=== PATIENT | female | born 1970 | race Caucasian/White ===

== ENCOUNTER → 2018-01-29 | Outpatient (CLI) | payer OTHER ==
--- NOTE | 2018-01-30 13:09 | MM ---
Reason for exam: clinical finding. Last mammogram was performed 2 years and 11 months ago. History: Patient is nulliparous. Family history of breast cancer in 2 maternal aunts and breast cancer in maternal cousin. U/S Discnt Right Core Biopsy of both breasts, February 14, 2013. Benign stereotactic core biopsy of the left breast, November 18, 2001. Core biopsy of the left breast. Took hormonal contraceptives for 18 years. Physical Findings: Nurse did not find any significant physical abnormalities on exam. MG 3D Diag Mammo W/Cad BRYSON Bilateral CC and MLO view(s) were taken. Prior study comparison: February 25, 2015, bilateral MG screening mammo w CAD. February 23, 2014, bilateral MG screening mammo w CAD. The breast tissue is heterogeneously dense. This may lower the sensitivity of mammography. Finding #1: There is stable architectural distortion in the upper quadrant of the right breast consistent with known excisional biopsies. Finding #2: There are typically benign round calcifications in both breasts. Previous mammotome biopsy in the left breast. There is no discrete abnormality. These results were verbally communicated with the patient and result sheet given to the patient on 01/29/18. ASSESSMENT: Benign, BI-RAD 2 RECOMMENDATION: Routine screening mammogram of both breasts in 1 year. Manage on a clinical basis with regard to right pain.
== END | disposition home or self-care (01) ==
LOC: RADMAMWWP 12:43
PROVIDERS: ATTEND Family Medicine
DX: N64.4 Mastodynia (principal)
CPT/HCPCS: 77066; G0279; 77062

== ENCOUNTER → 2020-06-22 | Outpatient (CLI) | payer OTHER ==
--- NOTE | 2020-06-23 08:35 | MM ---
Reason for exam: screening (asymptomatic). Last mammogram was performed 2 years and 5 months ago. History: Patient is nulliparous. Family history of breast cancer in 2 maternal aunts and breast cancer in maternal cousin. U/S Discnt Right Core Biopsy of both breasts, February 14, 2013. Benign stereotactic core biopsy of the left breast, November 18, 2001. Core biopsy of the left breast. Took hormonal contraceptives for 18 years. Physical Findings: A clinical breast exam by your physician is recommended on an annual basis and results should be correlated with mammographic findings. MG Screening Mammo w CAD Bilateral CC and MLO view(s) were taken. Prior study comparison: January 29, 2018, bilateral MG 3d diag mammo w/cad BRYSON. February 25, 2015, bilateral MG screening mammo w CAD. The breast tissue is heterogeneously dense. This may lower the sensitivity of mammography. Stable benign calcifications. There is no discrete abnormality. No significant changes when compared with prior studies. ASSESSMENT: Benign, BI-RAD 2 RECOMMENDATION: Routine screening mammogram of both breasts in 1 year.
== END | disposition home or self-care (01) ==
LOC: RADMAMWWP 09:27
PROVIDERS: ATTEND Family Medicine
DX: Z12.31 Encounter for screening mammogram for malignant neoplasm of breast (principal)
CPT/HCPCS: 77067

== ENCOUNTER → 2022-01-27 | Outpatient (CLI) | payer OTHER ==
--- NOTE | 2022-01-28 05:51 | MR ---
EXAMINATION TYPE: MR cspine/lspine wo con DATE OF EXAM: 01/27/2022 COMPARISON: Lumbar spine 02/25/2021 HISTORY: Neck and lower back pain, headaches, RUE/RLE radiculopathy. Multiplanar multiecho imaging of the cervical spine and lumbar spine without contrast. Cervical spine. Cervical vertebra have fairly Normal alignment. There is posterior disc bulging and slight elevation of the posterior longitudinal ligament at L4-5 and C5-6. There is developmentally adequate spinal can al and no spinal stenosis. Spinal canal measures 9 mm at C5-6 which is the narrowest point. Cervical spinal cord shows fairly normal signal pattern. There is slight increased signal on the left side of the cervical cord at the C5 level that could be artifact. There is no cervical paraspinal mass. No co mpression fracture. There is C5-6 disc space narrowing. IMPRESSION: Small posterior disc herniations at C4-5 and C5-6. No spinal stenosis. No definite cervical spinal co rd lesion. Lumbar spine. The lumbar vertebrae have normal alignment. There is L5-S1 disc space narrowing and posterior disc he rniation in the midline. There is hypertrophic facet arthropathy and ligamentum flavum thickening at the L4-5 level with resultant moderate spinal stenosis. No lumbar compression fracture. No lumbar par aspinal mass. Lumbar nerve roots appear fairly normal. IMPRESSION: There is some moderate spinal stenosis at L4-5 due to facet arthropathy and ligament thickening which is not significantly different than old exam. No compression fracture. Degenerative disc narrowing and disc bulging at L5-S1 without significant impingement on the spinal canal. No change compared to old exam
== END | disposition home or self-care (01) ==
LOC: RADMRIMAIN 20:47
PROVIDERS: ATTEND Nurse Practitioner Family
DX: M47.896 Other spondylosis, lumbar region (principal); M51.37 Other intervertebral disc degeneration, lumbosacral region; M54.2 Cervicalgia
CPT/HCPCS: 72141; 72148

== ENCOUNTER → 2022-03-23 | Outpatient (CLI) | payer OTHER ==
[2022-03-23 10:59] VITALS: BP 141/89; PULSE 72; RESP 18; TEMP 97.9
--- NOTE | 2022-03-23 13:42 | P.PAINPG ---
PQRS Measure Charge Sheet Comment: HISTORY OF PRESENT ILLNESS: 51 yr old female as a referral from [facility] presents today w severe and chronic LBP pain secondary to L5-S1 posterior disc herniations, spinal stenosis, DDD and facet arthropathy for evaluation. Pt states her pain level is currently at 6/10 in intensity, constant, localized in the lower aspect of her lumbar spine w radiation of pain towards BL glutes and posterior R thigh. It is constant, sharp, stabbing sore x 18 mo s/p fall downstairs in the basement. Pain is provoked by standing/walking for periods of 20 min or more, or climbing stairs. Pain is palliated w PT from Sep to January 2022, chiropractic treatments twice weekly but stopped per her PT instructions, heat, ice, medications (Neurontin, [place] prn), topicals, lay supine w LEs elevated, repositioning and rest. PMH: OA PSH: Gastric Sleeve Surgery, Uterine Ablation. SH: Current tobacco use, 10-14 ETOH drinks/ weekly, No illicit drug use. Works in retail as a stock person. FH: Noncontributory All: See list Meds: See list REVIEW OF ORGAN SYSTEMS: CONSTITUTIONAL: No fevers or chills. No recent weight loss. NEUROLOGICAL: + numbness and tingling along the distal extremities. No seizure disorders or headaches. MUSCULOSKELETAL: + pain PSYCHIATRIC: Denies current depression or suicidal thoughts. Physical Examinations : Constitutional : Cooperative , not in acute distress . Neurologic : Cranial nerve II to XII intact. No focal neurological deficits. Psychiatric : alert & oriented x 3. Matching mood & appropriate affect. Judgment & insight intact. Musculoskeletal : Cervical Spine Motor strength in the deltoid and biceps: Normal right side. Normal Left side Motor strength biceps and the wrist extensors: Normal right side . Normal left side Motor strength in the triceps muscle: Normal right side. Normal left side Deep tendon reflexes: Normal at the biceps. Normal at Brachioradialis. Normal at triceps Vertebral body tenderness to deep palpation over Cervical facet loading test: positive bilaterally Spurling test: positive bilaterally Neck distraction test: positive bilaterally Janeth sign: positive bilaterally Lumbar spine Motor strength lower extremities ,thigh and legs 5/5 Right side , 5/5 Left side Deep tendon reflexes : Normal Knee Jerk. Normal Ankle Jerk Vertebral body tenderness over L4 Lumbar facet Loading Test: positive Right / positive Left Range of motion of the lumbar spine Flexion 30 degrees, extension 10 degrees Straight Leg Raise test: Left/ Right positive at <30 degrees Bharat test: positive right / positive left. Severe tenderness over the Sacroiliac joint on the Right / Left sides Gaenslen test: positive bilaterally Seated flexion test: positive bilaterally. Sacral spine : Severe tenderness over the Sacroiliac joint: right side / left side Range of motion: Flexion of the lumbar spine <60 degrees Range of motion: Extension of the lumbar spine <20 degrees Gaenslen's Test positive Obey's Test positive Bharat test: positive right side / left side Thigh Thrust Test Sacral Thrust Test Imaging: MRI without contrast of the cervical and lumbar spine from 01/27/22 reviewed Assessment/ Plan : Lumbar posterior disc herniations, Lumbar spondylolisthesis Recommendation of L4-L5 LESI. May need a series of injections, up to 3 within a 6 mo period, for optimal pain relief. Risks, benefits of procedure discussed and patient verbalized understanding. Denies aspirin or anti- coagulant use or medical history of diabetes. Protocol for discontinuation/ continuation of medications ciara procedure discussed. All questions answered. I have spent greater than 30 minutes on patient care today. Dr Rodriguez was available by phone for the evaluation of this patient. The time was used to review the medical records including relevant urine studies and Prescription history (MAPs), review of the available imaging, evaluation and examination of the patient, coordination of care with the medical staff and if applicable referring physicians, as well as creation of the medical record Controlled Substance Measures - Controlled Substance Measures Is patient prescribed a controlled substance at discharge?: No
== END ==
LOC: PNWHC3 08:26
PROVIDERS: ATTEND Specialist
DX: M54.12 Radiculopathy, cervical region (principal); M48.061 Spinal stenosis, lumbar region without neurogenic claudication; M51.26 Other intervertebral disc displacement, lumbar region; M43.10 Spondylolisthesis, site unspecified; M19.90 Unspecified osteoarthritis, unspecified site
CPT/HCPCS: 99211

== ENCOUNTER 2022-05-02 07:20 | Day surgery (SDC) | payer OTHER ==
[2022-05-01 09:10] VITALS: BMI 30.2
[~2022-05-02 07:20] MED LIST: LACTATED RINGERS 1,000 ML IV SCH
[2022-05-02 07:41] VITALS: TEMP 97.7
[2022-05-02] MEDS ORDERED: MIDAZOLAM 2 MG/2 ML VIAL ONE (08:04)
[2022-05-02] MEDS ORDERED: IOPAMIDOL M200 10 ML VIAL ONE (08:04)
[2022-05-02] MEDS ORDERED: fentaNYL (PF) 50 MCG/ML 2 ML AMP ONE (08:04)
[2022-05-02] MEDS ORDERED: methylPREDNISolone ACETATE 80 MG/ML 1 ML VIAL ONE (08:04)
--- NOTE | 2022-05-02 08:17 | P.PCN ---
Date of Procedure: 05/02/22 Description of Procedure: Procedure: 1.L4-L5 Epidural steroid injection under fluoroscopic guidance 2. Lumbar epidurogram PREOPERATIVE DIAGNOSIS: Lumbar degenerative disc disease, and Lumbar radiculopathy. POSTOPERATIVE DIAGNOSIS: Lumbar degenerative disc disease, and Lumbar radiculopa thy. SURGEON: Aubrey Anna ANESTHESIA: Local with 1% lidocaine, and IV sedation: Versed 1 mg, and fentanyl 50 g Sedation supervision start time : 0806 sedation Supervision end time: 0 814 EBL: None. Specimen removed: None Fluoroscopic image: saved to electronic medical records PROCEDURE INDICATION: The patient had history of Lumbar degenerative disc disease and Lumbar radiculopathy. Failed to conservative therapy. Presented for epidural steroid injection. PROCEDURE DESCRIPTION: The patient was seen and identified in the preoperative area. Risks, benefits, complications, and alternatives were discussed with the patient. The patient agreed to proceed with the procedure and signed the consent. IV was started, and vital signs were stable. Patient was taken to the procedure area, and time out was completed. The patient was placed in the prone position on procedure table and a pillow was placed under the abdomen to reduce lumbar lordosis. The lumbosacral area was prepped a nd draped in the usual sterile fashion. Critical pause was taken. Vital signs were closely monitored during the procedure. Using anterior-posterior fluoroscopy, the L4-L5 interlaminar space was ident ified, and skin and deeper tissues were localized with 1% lidocaine. Using anterior-posterior fluoroscopy, lateral fluoroscopy, and [id number] technique, a 20 gauge 3.5 Tuohy epidural needle entered the epidural space. After negative aspiration of CSF and blood with no paresthesias, 1 ml of [id number] contrast dye was injected and an excellent epidurogram was seen. Again after negative aspiration of CSF and blood with no paresthesias, 8 mL of block solution was injected into the epidural space. Block solution contained 80 mg of Depo-Medrol, and 7 mL of preservative-free normal saline. Needle was withdrawn intact, skin was cleansed, and bandages were applied. COMPLICATIONS: None. DISPOSITION / PLANS: The patient was placed in a supine position and transferred to the recovery area in a stable condition for observation. Patient was discharged from the recovery room after meeting discharge criteria. Home discharge instructions given to the patient by the staff. The patient was re examined prior to discharge. The patient will schedule a follow up in the clinic in 4 weeks.
[2022-05-02] MEDS ORDERED: IV FLUID CONTINUATION 1,000 ML IV ONE (08:20)
--- NOTE | 2022-05-02 08:33 | FL ---
Fluoroscopy HISTORY: Pain 3 seconds fluoroscopy time supplied to the referring clinician. 2 intraoperative C-arm images docume nt the procedure. See dictated report from anesthesia.
[2022-05-02 08:49] VITALS: BP 133/75; PULSE 68; RESP 15
== END 2022-05-02 09:05 | disposition home or self-care (01) ==
LOC: ORPAIN 07:20
PROVIDERS: ATTEND Specialist
DX: M51.16 Intervertebral disc disorders with radiculopathy, lumbar region (principal); M19.90 Unspecified osteoarthritis, unspecified site; B95.62 Methicillin resistant Staphylococcus aureus infection as the cause of diseases classified elsewhere; F17.210 Nicotine dependence, cigarettes, uncomplicated; Z88.0 Allergy status to penicillin; Z98.84 Bariatric surgery status; Z90.12 Acquired absence of left breast and nipple; Z98.890 Other specified postprocedural states
CPT/HCPCS: 81025; 62323; 99152; J2250; J1040; J3010; Q9966

== ENCOUNTER → 2022-05-29 | Outpatient (CLI) | payer OTHER ==
[2022-05-29 10:11] VITALS: BP 158/87; PULSE 98; RESP 18; TEMP 98
--- NOTE | 2022-05-29 14:48 | P.PAINPG ---
PQRS Measure Charge Sheet Comment: A 52 yr old female with a history of severe and chronic low back pain secondary to lumbar degenerative disc diseases and lumbar spondylosis with facet arthropathy without myelopathy presents today for evaluation s/p TOMAS L4-L5. Pt states she experienced 60% pain relief x 4 wks s/p procedure. Pain level is cu rrently at 7/10 in intensity, intermittent, localized in the lower lumbar spine, throbbing in character w shooting towards BL buttocks and BLEs. Pain is provoked by overactivity. Pain is alleviated with PT/OT x 8 wks in Feb 2022, home exercise regimen, chiropractic treatments weekly x yrs, heat, ice, medications (Neurontin, Tramadol, [place]), topicals, epsom salt baths, repositioning and rest. Interventional pain procedures completed include TOMAS L4-L5 Patient is currently on [place], Tramadol, Neurontin Patient denies any side effects of the medication(s), denies excessive drowsiness or sleepiness, denies suicidal ideation and reports that the current pain medication is helping to control the pain and improve activities of daily living. Patient denies any motor or sensory deficits. Patient denies any fever or night sweats, denies any change in the bowel movements or urination. Physical Examination: -Constitutional: Cooperative. Not in acute distress . - Neurologic: Cranial nerve II to XII intact. No focal neurological deficits. - Psychatric: Alert & oriented x 3. Matching mood & appropriate affect. Judgment and insight intact. - Musculoskeletal: Cervical spine: Muscle bulk/ tone/ strength in the bilateral upper extremities normal Vertebral body tenderness to palpation over Spurling test positive Distraction test positive Facet loading test positive Thoracic spine Muscle bulk / tone/ strength in the bilateral paraspinal muscles normal Vertebral body tender to palpation over Facet loading test positive Lumbar spine: Motor bulk/ tone/ strength lower extremities , thigh and legs : 5/5 Deep tendon reflexes : Normal Knee Jerk. Normal Ankle Jerk . Vertebral body tenderness to palpation over L5 Lumbar Facet Loading Test positive Straight Leg Raise: positive at 30 degrees right side/ left side Gaenslen's Test positive Sacral spine : Severe tenderness over the Sacroiliac joint: right side / left side Range of motion: Flexion of the lumbar spine <60 degrees Range of motion: Extension of the lumbar spine <20 degrees Gaenslen's Test positive Obey's Test positive Bharat test: positive right side / left side Thigh Thrust Test Sacral Thrust Test Assessment and plan: Chronic low back pain secondary to lumbar degenerative disc disease , lumbar spondylosis with facet arthropathy without myelopathy Recommendatino of TOMAS L5-S1. May need a series of injections, up to 3 within a 6 mo period, for optimal pain relief. Risks, benefits of procedure discussed and pt verbalized understanding. Denies anticoagulant use or medical history of diabetes. All patient questions answered I have spent less than 30 minutes on patient care today. Dr Rodriguez was available by phone for the evaluation of this patient. The time was used to review the medical records including relevant urine studies and Prescription history (MAPs), review of the available imaging, evaluation and examination of the patient, coordination of care with the medical staff and if applicable referring physicians, as well as creation of the medical record - Pain Location Bilateral Lower Back Non-Pharmacological Interventions: Chiropractic Treatment, Heat, Home Exercise, Ice, Inactivity, Physical Therapy, Stretching Pharmacological Interventions: Epidural, Scheduled Medication, Topical Medication PQRS Narrative: Hx Alcohol Use (MH) Yes: 2-3XWEEKLY 12 BEERS Home Medications: Ambulatory Orders Gabapentin 300 mg PO QAM 05/01/22 Gabapentin 600 mg PO HS 05/01/22 Loratadine [Claritin] 10 mg PO QAM 05/01/22 Nicotine [Nicoderm Cq 14 mg] 14 mg TRANSDERM DAILY 05/01/22 guaiFENesin [Mucinex] 600 mg PO DAILY 05/01/22 traMADol HCl [Ultram] 50 mg PO DIRECTED PRN 05/01/22 Controlled Substance Measures - Controlled Substance Measures Is patient prescribed a controlled substance at discharge?: No
== END ==
LOC: PNWHC3 08:52
PROVIDERS: ATTEND Specialist
DX: M51.36 Other intervertebral disc degeneration, lumbar region (principal); M47.816 Spondylosis without myelopathy or radiculopathy, lumbar region; G89.29 Other chronic pain; F10.90 Alcohol use, unspecified, uncomplicated
CPT/HCPCS: 99211

== ENCOUNTER → 2022-07-04 | Day surgery (SDC) | payer OTHER ==
[2022-06-30 11:42] VITALS: BMI 31.1
[~2022-07-04] MED LIST changes: +IOPAMIDOL M200 10 ML VIAL ONE; +IV FLUID CONTINUATION 1,000 ML IV ONE; +LIDOCAINE 1% (10MG/ML) FOR IV START INTRADERMA PRN; +methylPREDNISolone ACETATE 80 MG/ML 1 ML VIAL ONE
[2022-07-04 08:44] VITALS: TEMP 97.6
--- NOTE | 2022-07-04 09:19 | P.PCN ---
Date of Procedure: 07/04/22 Description of Procedure: Procedure: 1. L5-S1 Epidural steroid injection under fluoroscopic guidance # 2/3 , 2. Lumbar epidurogram PREOPERATIVE DIAGNOSIS: Lumbar degenerative disc disease, and Lumbar radiculopathy. POSTOPERATIVE DIAGNOSIS: Lumbar degenerative disc disease, and Lumbar radiculopathy. SURGEON: Aubrey Anna ANESTHESIA: Local with 1% lidocaine, and IV sedation: none EBL: None. Specimen removed: None Fluoroscopic image: saved to electronic medical records PROCEDURE INDICATION: The patient had history of Lumbar degenerative disc disease and Lumbar radiculopathy. Failed to conservative therapy. Presented for epidural steroid injection. PROCEDURE DESCRIPTION: The patient was seen and identified in the preoperative area. Risks, benefits, complications, and alternatives were discussed with the patient. The patient agreed to proceed with the procedure and signed the consent. IV was started, and vital signs were stable. Patient was taken to the procedure area, and time out was completed. The patient was placed in the prone position on procedure table and a pillow was placed under the abdomen to reduce lumbar lordosis. The lumbosacral area was prepped and draped in the usual sterile fashion. Critical pause was taken. Vital signs were closely monitored during the procedure. Using anterior-posterior fluoroscopy, the L5-S1 interlaminar space was identified, and skin and deeper tissues were localized with 1% lidocaine. Using anterior-posterior fluoroscopy, lateral fluoroscopy, and [id number] technique, a 20 gauge 3.5 Tuohy epidural needle entered the epidural space. After negative aspiration of CSF and blood with no paresthesias, 2 ml of [id number] contrast dye was injected and an excellent epidurogram was seen. Again after negative aspiration of CSF and blood with no paresthesias, 8 mL of block solution was injected into the epidural space. Block solution contained 80 mg of Depo-Medrol, and 7 mL of preservative-free normal saline. Needle was withdrawn intact, skin was cleansed, and bandages were applied. COMPLICATIONS: None. DISPOSITION / PLANS: The patient was placed in a supine position and transferred to the recovery area in a stable condition for observation. Patient was discharged from the recovery room after meeting discharge criteria. Home discharge instructions given to the patient by the staff. The patient was reexamined prior to discharge. The patient will schedule a follow up in the clinic in 4 weeks.
[2022-07-04 09:33] VITALS: BP 124/64; RESP 16
[2022-07-04 09:34] VITALS: PULSE 75
--- NOTE | 2022-07-04 09:40 | FL ---
EXAMINATION TYPE: FL guided pain mgmt statistic DATE OF EXAM: 07/04/2022 HISTORY: Fluoroscopy time 5 seconds of fluoroscopy provided. IMPRESSION: 1. Fluoroscopy time.
== END ==
LOC: ORPAIN 08:19
DX: M48.062 Spinal stenosis, lumbar region with neurogenic claudication (principal); M51.16 Intervertebral disc disorders with radiculopathy, lumbar region; J45.909 Unspecified asthma, uncomplicated; F17.200 Nicotine dependence, unspecified, uncomplicated; F10.10 Alcohol abuse, uncomplicated; M19.90 Unspecified osteoarthritis, unspecified site; F12.20 Cannabis dependence, uncomplicated; Z95.1 Presence of aortocoronary bypass graft; Z90.10 Acquired absence of unspecified breast and nipple; Z88.0 Allergy status to penicillin; Z79.899 Other long term (current) drug therapy
CPT/HCPCS: 81025; 62323; J1040; Q9966

== ENCOUNTER → 2022-07-27 | Outpatient (CLI) | payer OTHER ==
[2022-07-27 09:52] VITALS: BP 142/80; PULSE 71; RESP 16; TEMP 98.2
--- NOTE | 2022-07-27 14:32 | P.PAINPG ---
PQRS Measure Charge Sheet Comment: A 52 yr old female with a history of severe and chronic low back pain secondary to lumbar DDD and spondylosis with facet arthropathy without myelopathy presents today for evaluation s/p TOMAS L5-S1 #2. Pt states she experienced 0 % pain relief s/p procedure. Pain level is currently at 8 /10 in intensity, constant, throbbing/ achy/ stabbing in character w shooting towards the BL hips. Pain is provoked by standing/ walking for periods of 15 min or more. Pain is alleviated with medications (Neurontin, Tylenol), OTC patches, injections, alternating heat & ice, PT in February 2022, daily home exercise regimen, repositioning and rest. Interventional pain procedures completed include TOMAS L5-S1 x2 Patient is currently on Neurontin, Tylenol OTC Patient denies any side effects of the medication(s), denies excessive drowsiness or sleepiness, denies suicidal ideation and reports that the current pain medication is helping to control the pain and improve activities of daily living. Patient denies any motor or sensory deficits. Patient denies any fever or night sweats, denies any change in the bowel movements or urination. Physical Examination: -Constitutional: Cooperative. Not in acute distress . - Neurologic: Cranial nerve II to XII intact. No focal neurological deficits. - Psychatric: Alert & oriented x 3. Matching mood & appropriate affect. Judgment and insight intact. - Musculoskeletal: Cervical spine: Muscle bulk/ tone/ strength in the bilateral upper extremities normal Vertebral body tenderness to palpation over Spurling test positive Distraction test positive Facet loading test positive Thoracic spine Muscle bulk / tone/ strength in the bilateral paraspinal muscles normal Vertebral body tender to palpation over Facet loading test positive Lumbar spine: Motor bulk/ tone/ strength lower extremities , thigh and legs : 5/5 Deep tendon reflexes : Normal Knee Jerk. Normal Ankle Jerk . Vertebral body tenderness to palpation over Lumbar Facet Loading Test positive jump reflex over BL L4-L5, L5-S1 facets Straight Leg Raise: positive at 30 degrees right side/ left side Gaenslen's Test positive Sacral spine : Severe tenderness over the Sacroiliac joint: right side / left side Range of motion: Flexion of the lumbar spine <60 degrees Range of motion: Extension of the lumbar spine <20 degrees Gaenslen's Test positive Bharat test: positive right side / left side Thigh Thrust Test Sacral Thrust Test Assessment and plan: Chronic low back pain secondary to lumbar degenerative disc disease, spondylosis with facet arthropathy without myelopathy Recommendation of BL facet block of the medial branches L4-L5, L5-S1 #1. May need a series of injections, up till RFA, for optimal pain relief. Risks, benefits of procedure discussed and pt verbalized understanding. Denies anticoagulant use or medical history of diabetes. All patient questions answered I have spent less than 30 minutes on patient care today. Dr Rodriguez was available by phone for the evaluation of this patient. The time was used to review the medical records including relevant urine studies and Prescription history (MAPs), review of the available imaging, evaluation and examination of the patient, coordination of care with the medical staff and if applicable referring physicians, as well as creation of the medical record PQRS Narrative: Hx Alcohol Use (MH) Yes: 2-3XWEEKLY 12 BEERS Home Medications: Ambulatory Orders Gabapentin 300 mg PO QAM 05/01/22 Gabapentin 600 mg PO HS 05/01/22 Loratadine [Claritin] 10 mg PO QAM 05/01/22 Nicotine [Nicoderm Cq 14 mg] 14 mg TRANSDERM DAILY 05/01/22 guaiFENesin [Mucinex] 600 mg PO DAILY 05/01/22 HYDROcodone/APAP 5-325MG [[place] 5-325] 1 tab PO HS PRN 06/30/22 busPIRone HCL [Buspirone HCl] 15 mg PO HS 06/30/22 traMADol HCL 50 mg PO Q6H PRN 06/30/22 Controlled Substance Measures - Controlled Substance Measures Is patient prescribed a controlled substance at discharge?: No
== END ==
LOC: PNWHC3 09:21
PROVIDERS: ATTEND Specialist
DX: M47.816 Spondylosis without myelopathy or radiculopathy, lumbar region (principal); M51.36 Other intervertebral disc degeneration, lumbar region; Z88.0 Allergy status to penicillin
CPT/HCPCS: 99211

== ENCOUNTER → 2022-10-31 | Outpatient (CLI) | payer OTHER ==
--- NOTE | 2022-11-01 09:22 | MM ---
Reason for Exam: Screening (asymptomatic). Last mammogram was performed 2 year(s) and 4 month(s) ago. Patient History: Menarche at age 11. Patient has no children. Patient used Hormonal Contraceptives for 18 years. Core Biopsy on the Left side. 11/18/2001, Benign Stereotactic Core Biopsy on the left side. 02/14/2013, Bilateral U/S Discnt Right Core Biopsy. Maternal cousin had breast cancer, age 52. Maternal aunt had breast cancer, age 68. Maternal aunt had breast cancer. Risk Values: Fang 5 year model risk: 1.3%. NCI Lifetime model risk: 11.1%. Prior Study Comparison: 02/25/2015 Bilateral Screening Mammogram, [facility]. 01/29/2018 Bilateral Diagnostic Mammogram, [facility]. 06/22/2020 Bilateral Screening Mammogram, [facility]. Tissue Density: The breast tissue is heterogeneously dense. This may lower the sensitivity of mammography. Findings: Analyzed By CAD. Mammotome biopsy clip left breast anteriorly is redemonstrated. There are scattered benign-appearing round calcifications bilaterally redemonstrated. There is stable 5 mm round mass in the anterior lower slightly inner left breast. Stable distortion in the upper outer aspect right breast. There is no suspicious new group of microcalcifications or new suspicious mass in either breast. Overall Assessment: Benign, BI-RAD 2 Management: Screening Mammogram of both breasts in 1 year. A clinical breast exam by your physician is recommended on an annual basis and results should be correlated with mammographic findings. Electronically signed and approved by: Rad Lamas M.D.
== END | disposition home or self-care (01) ==
LOC: RADMAMWWP 14:54
PROVIDERS: ATTEND Family Medicine
DX: Z12.31 Encounter for screening mammogram for malignant neoplasm of breast (principal); Z80.3 Family history of malignant neoplasm of breast; Z98.890 Other specified postprocedural states
CPT/HCPCS: 77067

== ENCOUNTER 2022-11-15 14:41 | Emergency (ER) | payer OTHER ==
--- NOTE | 2022-11-15 15:54 | XR ---
EXAMINATION TYPE: XR hand complete RT DATE OF EXAM: 11/15/2022 CLINICAL HISTORY: Trauma injury with pain TECHNIQUE: Frontal, lateral and oblique images of the right hand are obtained. COMPARISON: None. FINDINGS: There is no acute fracture/dislocation evident in the right hand. The joint spaces in the right hand appear within normal limits. The overlying soft tissue appears unremarkable. IMPRESSION: There is no acute fracture or dislocation in the right hand.
--- NOTE | 2022-11-15 15:58 | ED ---
General Adult HPI - General Chief complaint: Fall Stated complaint: fall/head injury hand injury Time Seen by Provider: 11/15/22 15:17 Source: patient, RN notes reviewed, old records reviewed Mode of arrival: wheelchair Limitations: no limitations - History of Present Illness Initial comments: 52-year-old female presenting status post fall with head injury and right hand injury. Patient fell in the bathtub yesterday. Chief complaint is right hand injury at the base of the second and third digits. She also had head trauma without loss consciousness. She has some neck pain and headache at the site of injury. No anticoagulation. - Related Data Home Medications Medication Instructions Recorded Confirmed Gabapentin 300 mg PO QAM 05/01/22 07/27/22 Gabapentin 600 mg PO HS 05/01/22 07/27/22 Loratadine [Claritin] 10 mg PO QAM 05/01/22 07/27/22 Nicotine [Nicoderm Cq 14 mg] 14 mg TRANSDERM DAILY 05/01/22 07/27/22 guaiFENesin [Mucinex] 600 mg PO DAILY 05/01/22 07/27/22 HYDROcodone/APAP 5-325MG [[place] 1 tab PO HS PRN 06/30/22 07/27/22 5-325] busPIRone HCL [Buspirone HCl] 15 mg PO HS 06/30/22 07/27/22 traMADol HCL 50 mg PO Q6H PRN 06/30/22 07/27/22 Allergies Allergy/AdvReac Type Severity Reaction Status Date / Time Penicillins Allergy Unknown Verified 11/15/22 15:15 Childhood Review of Systems ROS Statement: Those systems with pertinent positive or pertinent negative responses have been documented in the HPI. ROS Other: All systems not noted in ROS Statement are negative. Past Medical History Past Medical History: No Reported History Additional Past Medical History / Comment(s): Seasonal allergies, lower back and neck pain chronic History of Any Multi-Drug Resistant Organisms: MRSA Date of last positivie culture/infection: 2020 MDRO Source:: face Past Surgical History: Bariatric Surgery, Uterine Ablation Additional Past Surgical History / Comment(s): PAIN CLINIC PROCEDURES. EGD. HIATAL HERNIA REPAIRED WITH GASTRIC BYPASS Past Anesthesia/Blood Transfusion Reactions: No Reported Reaction Past Psychological History: No Psychological Hx Reported Smoking Status: Current every day smoker Past Alcohol Use History: None Reported Past Drug Use History: Marijuana - Past Family History Mother Family Medical History: No Reported History General Exam Limitations: no limitations General appearance: alert, in no apparent distress Head exam: Present: atraumatic, normocephalic Eye exam: Present: normal appearance, PERRL ENT exam: Present: normal exam Neck exam: Present: normal inspection. Absent: tenderness, meningismus Respiratory exam: Present: normal lung sounds bilaterally. Absent: respiratory distress, wheezes Cardiovascular Exam: Present: regular rate, normal rhythm GI/Abdominal exam: Present: soft. Absent: distended, tenderness, guarding Extremities exam: Present: other (Soft tissue swelling at the base of the second and third digit right hand dorsal aspect) Neurological exam: Present: alert, oriented X3, CN II-XII intact. Absent: motor sensory deficit Psychiatric exam: Present: normal affect, normal mood Skin exam: Present: warm, dry, intact. Absent: cyanosis, diaphoretic Course Vital Signs 11/15/22 15:09 Temperature 98.4 F Pulse Rate 104 H Respiratory 18 Rate Blood Pressure 124/82 O2 Sat by Pulse 99 Oximetry Medical Decision Making - Medical Decision Making Was pt. sent in by a medical professional or institution (Dr. PA, [employer], urgent care, hospital, or fpc...) When possible be specific @ -No Did you speak to anyone other than the patient for history (EMS, parent, family, police, friend...)? What history was obtained from this source @ -No Did you review nursing and triage notes (agree or disagree)? Why? @ -I reviewed and agree with nursing and triage notes Were old charts reviewed (outside hosp., previous admission, EMS record, old EKG, old radiological studies, urgent care reports/EKG's, fpc records)? Report findings @ -No old charts were reviewed Differential Diagnosis (chest pain, altered mental status, abdominal pain women, abdominal pain men, vaginal bleeding, weakness, fever, dyspnea, syncope, headache, dizziness, GI bleed, back pain, seizure, CVA, palpatations, mental health, musculoskeletal)? @ -Intracranial hemorrhage, cervical spine injury, orthopedic injury to the hand EKG interpreted by me (3pts min.). @ -As above X-rays interpreted by me (1pt min.). @ -Showed a right hand is obtained which is negative for acute fracture dislocation. CT interpreted by me (1pt min.). @ -CT brain and cervical spine is negative for intracranial hemorrhage or mass effect, cervical spine showing some degenerative change without acute process. There is a small lacunar infarct on head CT. What testing was considered but not performed or refused? (CT, X-rays, U/S, labs)? Why? @ -None What meds were considered but not given or refused? Why? @ -None Did you discuss the management of the patient with other professionals (professionals i.e. , PA, [employer], lab, RT, psych nurse, social science analyst, electric trucker, teacher, chemical instrumentation officer, director of casework services)? Give summary @ -No Was smoking cessation discussed for >3mins.? @ -No Was critical care preformed (if so, how long)? @ -No Were there social determinants of health that impacted care today? How? (Homelessness, low income, unemployed, alcoholism, drug addiction, transportation, low edu. Level, literacy, decrease access to med. care, longterm, rehab)? @ -No Was there de-escalation of care discussed even if they declined (Discuss DNR or withdrawal of care, Hospice)? DNR status @ -No What co-morbidities impacted this encounter? (DM, HTN, Smoking, COPD, CAD, Cancer, CVA, ARF, Chemo, Hep., AIDS, mental health diagnosis, sleep apnea, morbid obesity)? @ -None Was patient admitted / discharged? Hospital course, mention meds given and route, prescriptions, significant lab abnormalities, going to OR and other pertinent info. @ -52-year-old female with right hand injury and head injury. Hand x-ray negative for acute fracture dislocation. Head CT negative for intracranial hemorrhage or mass effect. There is no cervical spine fracture or subluxation. Patient does have a lacunar infarct on imaging. She has no stroke symptoms. She believes she may have had a stroke 4 years ago. She has an appointment with her primary care physician next week and I did recommend outpatient imaging with MRI. Patient agreeable with this. She has pain medicine at home. Undiagnosed new problem with uncertain prognosis? @ -No Drug Therapy requiring intensive monitoring for toxicity (Heparin, Nitro, Insulin, Cardizem)? @ -No Were any procedures done? @ -No Diagnosis/symptom? @ -Concussion, right hand contusion Acute, or Chronic, or Acute on Chronic? @ -Acute Uncomplicated (without systemic symptoms) or Complicated (systemic symptoms)? @ -Uncomplicated Side effects of treatment? @ -No Exacerbation, Progression, or Severe Exacerbation? @ -No Poses a threat to life or bodily function? How? (Chest pain, USA, DC, pneumonia, PE, COPD, DKA, ARF, appy, cholecystitis, CVA, Diverticulitis, Homicidal, Suicidal, threat to staff... and all critical care pts) @ -No Disposition Clinical Impression: Fall, Concussion, Contusion of hand, right Disposition: HOME SELF-CARE Condition: Good Instructions (If sedation given, give patient instructions): Concussion (ED), Contusion in Adults (ED) Additional Instructions: Please follow up with her primary care physician next week as planned. Please mention the CT findings and obtain outpatient MRI. Is patient prescribed a controlled substance at d/c from ED?: No Referrals: Gertrudis Kamara MD [STAFF PHYSICIAN] - 1-2 days Time of Disposition: 17:06
--- NOTE | 2022-11-15 16:17 | CT ---
EXAMINATION TYPE: CT brain marily wang con DATE OF EXAM: 11/15/2022 COMPARISON: HISTORY: Fall. CT DLP: 1334.1 mGycm, Automated exposure control for dose reduction was used. CONTRAST: Patient injected with 0 mL of Isovue 300. CT of the brain is performed utilizing 3 mm thick sections through the posterior fossa and 3 mm thick sections through the remaining calvarium. Study is performed within 24 hours of arrival to the hospital. No abnormal hyperdensity is present to suggest an acute intracranial hemorrhage. No mass lesion is evident. No acute infarcts are evident. Small lacunar infarct may be within the left segura radiata. This is ill-defined and is of indeterminate age. Ventricles and sulci are appropriate for the patient age. Paranasal sinuses and mastoid air cells within the [id number] are clear. IMPRESSIONS: 1. A small lacunar infarct of indeterminate age may be in the left segura radiata. Follow-up MRI can be performed as clinically indicated. 2. Otherwise, No acute intracranial process. CT cervical spine. COMPARISON: None CT of the cervical spine is performed in the axial plane at 2 mm thick sections. Reconstructed image s in the coronal, and sagittal plane are reviewed on the computer. No acute fractures are evident. Vertebral body alignment is normal. There is loss of disc height at C5-6. Minimal posterior endplate spurring is present. No AP spinal ca nal stenosis is present. Vertebral body heights are preserved. IMPRESSIONS: 1. Degenerative disc changes C5-6 2. No acute osseous abnormality.
[2022-11-15 17:48] VITALS: BP 126/89; PULSE 76; RESP 16; TEMP 98
== END 2022-11-15 18:05 | disposition home or self-care (01) ==
LOC: EC 14:41
DX: S06.0X0A Concussion without loss of consciousness, initial encounter (principal); S60.221A Contusion of right hand, initial encounter; M47.812 Spondylosis without myelopathy or radiculopathy, cervical region; F17.200 Nicotine dependence, unspecified, uncomplicated; F12.90 Cannabis use, unspecified, uncomplicated; Z88.0 Allergy status to penicillin; R40.2410 Glasgow coma scale score 13-15, unspecified time; W18.2XXA Fall in (into) shower or empty bathtub, initial encounter; Y93.E1 Activity, personal bathing and showering
CPT/HCPCS: 70450; 72125; 99284

== ENCOUNTER → 2022-12-04 | Outpatient (CLI) | payer OTHER ==
--- NOTE | 2022-12-04 22:47 | MR ---
EXAMINATION TYPE: MR brain wo con DATE OF EXAM: 12/04/2022 COMPARISON: CT brain November 15, 2022 HISTORY: Stroke, Multiple Falls, Hit head few times TECHNIQUE: Multiplanar, multisequence imaging of the brain and brainstem is performed without IV cont rast. FINDINGS: Diffusion weighted images demonstrate no evidence of a recent infarct or other diffusion abnormality. There is mild to moderate ventricular and sulcal prominence redemonstrated. Scattered small foci of T 2 hyperintensity are seen throughout the white matter bilaterally. Approximately 30-40 small scattere d lesions are seen on MRI. Old lacunar infarct left coronal radiata is confirmed axial image 21. No suspicious intraparenchymal blood product on the T2 star weighted images. Midline structures demonstrate normal morphology. The craniocervical junction appears within normal limits. Normal vascular flow voids are present. The visualized sinuses are clear and the globes are i ntact. IMPRESSION: There is mild to moderate diffuse cerebral atrophy and moderate nonspecific white matter changes. No MRI evidence for recent infarct.
== END | disposition home or self-care (01) ==
LOC: RADMRIMAIN 21:15
PROVIDERS: ATTEND Physician Assistant
DX: I63.81 Other cerebral infarction due to occlusion or stenosis of small artery (principal); G31.9 Degenerative disease of nervous system, unspecified; M62.81 Muscle weakness (generalized); R90.82 White matter disease, unspecified
CPT/HCPCS: 70551

== ENCOUNTER 2023-04-26 08:10 | Day surgery (SDC) | payer OTHER ==
[2023-04-26] MEDS ORDERED: GABAPENTIN 300 MG CAP PO STA (10:53)
--- NOTE | 2023-04-26 11:21 | FL ---
EXAMINATION TYPE: FL myelogram cervical, CT cervical spine w con DATE OF EXAM: 04/26/2023 COMPARISON: HISTORY: Post myelogram CT of the cervical spine. radiculopathy (post myelogram injected in xray) CT DLP: 787.4 mGycm 12ML ISOVUE 300M INJECTED INTRATHECALLY FOR CERVICAL MYELOGRAM, 2MIN 4SEC FL TIME CONTRAST: Performed , patient injected with 12 mL of Isovue 300. Post myelogram CT of the cervical spine. Post myelography CT of the cervical spine was performed from C1 through C7-T1. Axial coronal and sag ittal images are submitted. Patient motion does limit portions of the study. C2-C3: Within normal limits. C3-C4: Within normal limits. C4-C5: Degenerative disc space narrowing. Mild posterior disc bulge. No evidence for central stenosis or disc herniation. Foramina appear to be patent bilaterally. C5-C6: There is moderate degenerative disc space narrowing and posterior and ventral spondylosis. Th ere is disc bulge with partial encapsulating spur. Evaluation at this level is limited by patient mot ion therefore I cannot exclude a degree of central stenosis. There is mild to moderate left foraminal encroachment. C6-C7: Degenerative disc space narrowing. Mild posterior disc bulge. No evidence for central stenosis or disc herniation. Foramina appear to be patent bilaterally. C7-T1: Within normal limits There is no evidence for fracture. Normal alignment is present. IMPRESSION: 1. Examination is limited by patient motion as can be seen on the axial images. At C5-6 there is deg enerative disc disease with circumferential disc bulge greatest posteriorly and partially encapsulati ng spur. At this level I cannot exclude a degree of central stenosis. There is a mild to moderate lef t foraminal encroachment noted.
[2023-04-26 15:59] VITALS: BP 123/67; PULSE 81; RESP 16; TEMP 97.4
== END 2023-04-26 13:54 | disposition home or self-care (01) ==
LOC: RADPROMAIN 08:10
PROVIDERS: ATTEND Family Medicine
DX: M50.123 Cervical disc disorder at C6-C7 level with radiculopathy (principal); M47.22 Other spondylosis with radiculopathy, cervical region
CPT/HCPCS: 62302; 72126

== ENCOUNTER → 2023-11-14 | Outpatient (CLI) | payer OTHER ==
--- NOTE | 2023-11-15 00:52 | MM ---
Reason for Exam: Screening (asymptomatic). Last mammogram was performed 1 year(s) and 1 month(s) ago. Patient History: Menarche at age 11. Patient has no children. Patient used Hormonal Contraceptives for 18 years. Core Biopsy on the Left side. 11/18/2001, Benign Stereotactic Core Biopsy on the left side. 02/14/2013, Bilateral U/S Discnt Right Core Biopsy. Maternal cousin had breast cancer, age 52. Maternal aunt had breast cancer, age 68. Maternal aunt had breast cancer. Risk Values: Fang 5 year model risk: 1.4%. NCI Lifetime model risk: 10.9%. Prior Study Comparison: 01/29/2018 Bilateral Diagnostic Mammogram, [facility]. 06/22/2020 Bilateral Screening Mammogram, [facility]. 10/31/2022 Bilateral MG screening mammo w CAD, [facility]. Tissue Density: There are scattered areas of fibroglandular density. Findings: Analyzed By CAD. The pattern is symmetrical. Multiple benign-appearing coarse and spherical calcifications are present bilaterally. There appears to be some chronic distortion in the upper outer right. Within the lower aspect left medial lateral oblique views Nodular density. Additional workup is recommended. Medial lateral oblique view. Overall Assessment: Incomplete: need additional imaging evaluation, BI-RAD 0 Management: Diagnostic Mammogram of the left breast. A negative mammogram report should not preclude additional follow up of suspicious palpable abnormalities. Patient should continue monthly self breast exam. A clinical breast exam by your physician is recommended on an annual basis and results should be correlated with mammographic findings. Electronically signed and approved by: Lexa Mc D.O. Radiologis
== END | disposition home or self-care (01) ==
LOC: RADMAMWWP 10:30
PROVIDERS: ATTEND Family Medicine
DX: Z12.31 Encounter for screening mammogram for malignant neoplasm of breast (principal); Z80.3 Family history of malignant neoplasm of breast
CPT/HCPCS: 77067

== ENCOUNTER → 2023-11-16 | Outpatient (CLI) | payer OTHER ==
--- NOTE | 2023-11-16 10:15 | MM ---
Reason for Exam: Additional evaluation requested from abnormal screening. Last screening mammogram was performed less than 1 month ago. Patient History: Menarche at age 11. Patient has no children. Patient used Hormonal Contraceptives for 18 years. Core Biopsy on the Left side. 11/18/2001, Benign Stereotactic Core Biopsy on the left side. 02/14/2013, Bilateral U/S Discnt Right Core Biopsy. Maternal cousin had breast cancer, age 52. Maternal aunt had breast cancer, age 68. Maternal aunt had breast cancer. Risk Values: Fang 5 year model risk: 1.4%. NCI Lifetime model risk: 10.9%. Prior Study Comparison: 06/22/2020 Bilateral Screening Mammogram, [facility]. 10/31/2022 Bilateral MG screening mammo w CAD, [facility]. 11/14/2023 Bilateral MG screening mammo w CAD, [facility]. Tissue Density: Left: The breasts are heterogeneously dense, which may obscure small masses. Findings: Analyzed By CAD. Persistent 6 mm nodular density left 5:00 position 10 cm from the nipple. Ultrasound recommended. Overall Assessment: Incomplete: need additional imaging evaluation, BI-RAD 0 Management: Diagnostic Breast Ultrasound of the left breast. . Results were given to the patient verbally at the time of exam. Patient should continue monthly self-breast exams. A clinical breast exam by your physician is recommended on an annual basis. This exam should not preclude additional follow-up of suspicious palpable abnormalities. Note on Fang scores and lifetime risk: 1. A Fang score greater than 3% is considered moderate risk. If this is the case, consider specialist referral to assess eligibility for a risk reducing agent. 2. If overall lifetime risk for the development of breast cancer is 20% or higher, the patient may qualify for future screening with alternating mammogram and breast MRI. Electronically signed and approved by: Ghulam Rose M.D. Radiologis
--- NOTE | 2023-11-16 11:02 | USB ---
Reason for Exam: Additional evaluation requested from abnormal screening. Patient History: Menarche at age 11. Patient has no children. Patient used Hormonal Contraceptives for 18 years. Core Biopsy on the Left side. 11/18/2001, Benign Stereotactic Core Biopsy on the left side. 02/14/2013, Bilateral U/S Discnt Right Core Biopsy. Maternal cousin had breast cancer, age 52. Maternal aunt had breast cancer, age 68. Maternal aunt had breast cancer. Risk Values: Fang 5 year model risk: 1.4%. NCI Lifetime model risk: 10.9%. Technique: Method: Targeted. Multiple positions used - unable to evenly distribute breast tissue / keep tissue in place for evaluation. Prior Study Comparison: 06/22/2020 Bilateral Screening Mammogram, [facility]. 10/31/2022 Bilateral MG screening mammo w CAD, [facility]. 11/14/2023 Bilateral MG screening mammo w CAD, [facility]. Findings: The lower outer quadrant of the left breast, the axilla of the left breast and the retroareolar of the left breast were scanned. No solid or cystic masses are identified.. Overall Assessment: Probably benign, BI-RAD 3 Management: Diagnostic Mammogram of the left breast in 6 months. A clinical breast exam by your physician is recommended on an annual basis and results should be correlated with mammographic findings. This exam should not preclude additional follow-up of suspicious palpable abnormalities. Results were given to the patient verbally at the time of exam. Electronically signed and approved by: Ghulam Rose M.D. Radiologis
== END | disposition home or self-care (01) ==
LOC: RADMAMWWP 09:26
PROVIDERS: ATTEND Family Medicine
DX: R92.332 Mammographic heterogeneous density, left breast (principal); Z80.3 Family history of malignant neoplasm of breast
CPT/HCPCS: 77065; 76642; G0279; 77061

== ENCOUNTER → 2024-06-19 | Outpatient (CLI) | payer OTHER, MEDICARE ==
--- NOTE | 2024-06-19 10:06 | MM ---
Reason for Exam: Follow-up at short interval from prior study. Last screening mammogram was performed 7 month(s) ago. Patient History: Menarche at age 11. Patient has no children. Patient used Hormonal Contraceptives for 18 years. Core Biopsy on the Left side. 11/18/2001, Benign Stereotactic Core Biopsy on the left side. 02/14/2013, Bilateral U/S Discnt Right Core Biopsy. Maternal cousin had breast cancer, age 52. Maternal aunt had breast cancer, age 68. Maternal aunt had breast cancer. Risk Values: Fang 5 year model risk: 1.4%. NCI Lifetime model risk: 10.7%. Prior Study Comparison: 10/31/2022 Bilateral MG screening mammo w CAD, [facility]. 11/14/2023 Bilateral MG screening mammo w CAD, [facility]. 11/16/2023 Left MG 3D work up w/cad , [facility]. Tissue Density: Left: The breasts are heterogeneously dense, which may obscure small masses. Findings: Analyzed By CAD. Pattern appears stable. Chronic nodularity left breast appears stable no enlarging masses are evident. Benign calcifications are unremarkable. No suspicious groups of microcalcifications, spiculated or lobular masses, architectural distortion or other secondary signs of malignancy are mammographically apparent. Overall Assessment: Benign, BI-RAD 2 Management: Screening Mammogram of both breasts in 6 months. A negative mammogram report should not preclude additional follow up of suspicious palpable abnormalities. Patient should continue monthly self breast exam. A clinical breast exam by your physician is recommended on an annual basis and results should be correlated with mammographic findings. Note on Fang scores and lifetime risk: 1. A Fang score greater than 3% is considered moderate risk. If this is the case, consider specialist referral to assess eligibility for a risk reducing agent. 2. If overall lifetime risk for the development of breast cancer is 20% or higher, the patient may qualify for future screening with alternating mammogram and breast MRI. [facility], , 06/19/2024 10:02 AM. Electronically signed and approved by: Lexa Mc D.O. Radiologis
== END | disposition home or self-care (01) ==
LOC: RADMAMWWP 09:34
PROVIDERS: ATTEND Family Medicine
DX: R92.8 Other abnormal and inconclusive findings on diagnostic imaging of breast (principal); Z80.3 Family history of malignant neoplasm of breast; R92.332 Mammographic heterogeneous density, left breast
CPT/HCPCS: 77065; G0279; 77061

== ENCOUNTER → 2025-01-19 | Outpatient (CLI) | payer MEDICARE, OTHER ==
--- NOTE | 2025-01-19 10:45 | MM ---
Reason for Exam: Screening (asymptomatic). Last mammogram was performed 1 year(s) and 2 month(s) ago. Patient History: Menarche at age 11. Patient has no children. Patient used Hormonal Contraceptives for 18 years. Core Biopsy on the Left side. 11/18/2001, Benign Stereotactic Core Biopsy on the left side. 02/14/2013, Bilateral U/S Discnt Right Core Biopsy. Maternal cousin had breast cancer, age 52. Maternal aunt had breast cancer, age 68. Maternal aunt had breast cancer. Risk Values: Fang 5 year model risk: 1.4%. NCI Lifetime model risk: 10.7%. Prior Study Comparison: 11/14/2023 Bilateral MG screening mammo w CAD, [facility]. 11/16/2023 Left MG 3D work up w/cad LT, [facility]. 06/19/2024 Left MG 3D diag mammo w/cad LT, [facility]. Tissue Density: The breasts are heterogeneously dense, which may obscure small masses. Findings: Analyzed By CAD. There are few benign-appearing round calcifications redemonstrated throughout the bilateral breasts. Stable distortion in the upper-outer aspect right breast. There is no suspicious group of microcalcifications or new suspicious mass in either breast. Overall Assessment: Benign, BI-RAD 2 Management: Screening Mammogram of both breasts in 1 year. . Patient should continue monthly self-breast exams. A clinical breast exam by your physician is recommended on an annual basis. This exam should not preclude additional follow-up of suspicious palpable abnormalities. Note on Fang scores and lifetime risk: 1. A Fang score greater than 3% is considered moderate risk. If this is the case, consider specialist referral to assess eligibility for a risk reducing agent. 2. If overall lifetime risk for the development of breast cancer is 20% or higher, the patient may qualify for future screening with alternating mammogram and breast MRI. [facility], , 01/19/2025 10:42 AM. Electronically signed and approved by: Rad Lamas M.D.
== END | disposition home or self-care (01) ==
LOC: RADMAMWWP 10:12
PROVIDERS: ATTEND Family Medicine
DX: Z12.31 Encounter for screening mammogram for malignant neoplasm of breast (principal); R92.333 Mammographic heterogeneous density, bilateral breasts; Z80.3 Family history of malignant neoplasm of breast; Z92.0 Personal history of contraception
CPT/HCPCS: 77063; 77067